=== PATIENT | female | born 1975 | race African-American/Black ===

== ENCOUNTER 2018-11-13 01:21 | Emergency (ER) | payer OTHER ==
[~2018-11-13] VITALS: Ht 167.6 cm; Wt 146.0 kg
[2018-11-13 01:53] VITALS: BP 157/118
[2018-11-13] MEDS ORDERED: MORPHINE SULFATE 4 MG/ML CPJ (NOT FOR IM USE) IV STA (01:53)
[2018-11-13] MEDS ORDERED: ONDANSETRON HCL 4MG/2ML INJ IV STA (01:53)
[2018-11-13] MEDS ORDERED: NITROGLYCERIN OINT 1GM/INCH UDPKT TD ONE (02:00)
[2018-11-13 02:21] LABS: BASOPHILS % 0.9 % (0.0-2.0); HEMOGLOBIN. 10.9 g/dL (12.0-16.0); LYMPHOCYTES % 31.4 % (20.0-50.0); MEAN CORPUSCULAR VOLUME 70.6 fL (81.0-99.0); MEAN PLATELET VOLUME 9.1 fl (7.4-10.4); NEUTROPHILS % 60.7 % (40.0-76.0); PLATELET 318 x1000/uL (130-400); RED BLOOD CELL COUNT 4.95 mill/uL (4.2-5.4)
[2018-11-13 02:25] LABS: CHLORIDE 105 mEq/L (98-107)
[2018-11-13 03:11] LABS: *AMPHETAMINES SCREEN URINE NEGATIVE (NEGATIVE); *BARBITURATES SCREEN URINE NEGATIVE (NEGATIVE); *BENZODIAZEPINES SCREEN URINE NEGATIVE (NEGATIVE); *COCAINE SCREEN URINE NEGATIVE (NEGATIVE); METHADONE URINE SCREEN NEGATIVE (NEGATIVE)
[2018-11-13 03:12] LABS: CANNABINOID URINE SCREEN NEGATIVE (NEGATIVE); OPIATES URINE SCREEN NEGATIVE (NEGATIVE); PHENCYCLIDINE URINE SCREEN NEGATIVE (NEGATIVE)
== END 2018-11-13 03:33 | disposition left against medical advice (07) ==
LOC: ER 01:21 → CANBEDREQ 05:17
DX: R07.89 Other chest pain (principal); E78.00 Pure hypercholesterolemia, unspecified; I10 Essential (primary) hypertension; J45.909 Unspecified asthma, uncomplicated
CPT/HCPCS: 36415; 71045; 80053; 80305; 83690; 83880; 84484; 85025; 85379; 93005; 99284; Z7610

== ENCOUNTER 2021-07-30 00:58 | Emergency (ER) | payer OTHER ==
[~2021-07-30] VITALS: Ht 167.6 cm; Wt 137.0 kg
[2021-07-30 02:14] VITALS: BP 139/80
== END 2021-07-30 02:21 | disposition left against medical advice (07) ==
LOC: ER 00:58
DX: Z53.21 Procedure and treatment not carried out due to patient leaving prior to being seen by health care provider (principal)

== ENCOUNTER 2024-07-27 19:27 | Emergency (ER) | payer MEDICAID ==
[~2024-07-27] VITALS: Ht 167.6 cm; Wt 129.0 kg
[~2024-07-27 19:27] MED LIST: AMLO10TA4 PO; ASPI-1406 MT; ATOR-388 PO; CETI-193 PO; GABA-1180 PO; IBUP-2029 MT; LOSA50TA41 PO; METF-1150 PO; MONT-39 PO
[2024-07-27 20:24] LABS: BASOPHILS % 0.6 % (0.0-2.0); DIFFERENTIAL COMMENT 0; EOSINOPHILS % 3.1 % (0.0-5.0); HEMATOCRIT. 31.6 % (36.0-48.0); HEMOGLOBIN. 9.7 g/dL (12.0-16.0); LYMPHOCYTES % 30.9 % (20.0-50.0); MEAN CORPUSCULAR HEMOGLOBIN 22.5 pg (28.0-32.0); MEAN CORPUSCULAR HGB CONC 30.8 g/dL (31.0-37.0); MEAN CORPUSCULAR VOLUME 73.2 fL (81.0-99.0); MEAN PLATELET VOLUME 8.3 fl (7.4-10.4); MONOCYTES % 4.4 % (2.0-8.0); PLATELET 332 x1000/uL (130-400); RED BLOOD CELL COUNT 4.31 mill/uL (4.2-5.4); RED CELL DISTRIBUTION WIDTH 18.7 % (11.6-14.6); WHITE BLOOD COUNT 11.1 x1000/uL (4.5-11.0)
[2024-07-27 20:31] LABS: CHLORIDE 105 mEq/L (98-107); POTASSIUM 3.9 mEq/L (3.5-5.1); SODIUM 138 mEq/L (136-145)
[2024-07-27 20:32] LABS: CALCIUM 9.1 mg/dL (8.7-10.4); CARBON DIOXIDE 25 mEq/L (21-32)
[2024-07-27 20:37] LABS: CREATININE 0.7 mg/dL (0.6-1.0); GLUCOSE 91 mg/dL (70-105); UREA NITROGEN BLOOD 10 mg/dL (9-23)
[2024-07-27 20:40] LABS: TROPONIN I HIGH SENSITIVITY 6 ng/L (3.0-34)
[2024-07-27] MEDS ORDERED: ALBUTEROL (0.083%) 2.5MG/3ML NEB HHN ONE (20:45)
[2024-07-27] MEDS: IPRATROPIUM/ALBUTEROL 0.5-3(2.5)MG/3ML NEB HHN ONE (20:45)
[2024-07-27] MEDS ORDERED: AZIT250T12 MT (21:17)
[2024-07-27] MEDS ORDERED: PHEN1CAP86 MT (21:17)
[2024-07-27] MEDS ORDERED: GUAI600T26 MT (21:17)
[2024-07-27] MEDS ORDERED: P50 MT (21:17)
[2024-07-27] MEDS ORDERED: BENZ100C86 MT (21:18)
[2024-07-27] MEDS: PREDNISONE 20MG TABLET PO ONE (21:31)
[2024-07-27 22:01] VITALS: PULSE 75; RESP 22; O2SAT 99
[2024-07-27 22:25] VITALS: BP 144/89; PULSE 84; RESP 18; TEMP 36.8; O2SAT 99
== END 2024-07-27 22:26 | disposition home or self-care (01) ==
LOC: ER 19:27
DX: J06.9 Acute upper respiratory infection, unspecified (principal); J44.1 Chronic obstructive pulmonary disease with (acute) exacerbation; E11.9 Type 2 diabetes mellitus without complications; I10 Essential (primary) hypertension; Z79.899 Other long term (current) drug therapy; Z86.73 Personal history of transient ischemic attack (TIA), and cerebral infarction without residual deficits
CPT/HCPCS: 80048; 85025; 84484; 36415; 71045; 94640; 94760; 93005; 99285; J7512; Z7610 ×3

== ENCOUNTER 2024-08-17 16:28 | Emergency (ER) | payer MEDICAID ==
[~2024-08-17] VITALS: Ht 172.7 cm; Wt 124.0 kg
[~2024-08-17 16:28] MED LIST changes: +AMLO-905 PO; -AMLO10TA4 PO; +AZIT250T12 MT; +BENZ100C86 MT; +GUAI600T26 MT; +P50 MT; +PHEN1CAP86 MT
[2024-08-17 16:31] VITALS: RESP 18; TEMP 36.8; O2SAT 98
[2024-08-17] MEDS: SODIUM CHLORIDE 0.9% 1,000 ML IV ONE (16:59)
[2024-08-17 17:12] LABS: BASOPHILS % 0.5 % (0.0-2.0); DIFFERENTIAL COMMENT 0; HEMATOCRIT. 34.9 % (36.0-48.0); HEMOGLOBIN. 10.7 g/dL (12.0-16.0); LYMPHOCYTES % 27.5 % (20.0-50.0); MEAN CORPUSCULAR HGB CONC 30.6 g/dL (31.0-37.0); MEAN PLATELET VOLUME 8.1 fl (7.4-10.4); MONOCYTES % 3.8 % (2.0-8.0); NEUTROPHILS % 66.2 % (40.0-76.0); PLATELET 346 x1000/uL (130-400); RED BLOOD CELL COUNT 4.85 mill/uL (4.2-5.4); WHITE BLOOD COUNT 12.4 x1000/uL (4.5-11.0)
[2024-08-17 17:22] LABS: CHLORIDE 105 mEq/L (98-107); POTASSIUM 3.9 mEq/L (3.5-5.1); PROTHROMBIN TIME 10.3 sec (9.6-11.0); SODIUM 138 mEq/L (136-145)
[2024-08-17 17:23] LABS: CALCIUM 10.1 mg/dL (8.7-10.4); CARBON DIOXIDE 24 mEq/L (21-32)
[2024-08-17 17:28] LABS: CREATININE 0.7 mg/dL (0.6-1.0); ETHANOL BLOOD < 10 mg/dL (<10); GLUCOSE 103 mg/dL (70-105); UREA NITROGEN BLOOD 13 mg/dL (9-23)
[2024-08-17 17:29] LABS: TROPONIN I HIGH SENSITIVITY 5 ng/L (3.0-34)
[2024-08-17 17:59] LABS: HCG SCREEN NEGATIVE
[2024-08-17 20:53] LABS: TROPONIN I HIGH SENSITIVITY 5 ng/L (3.0-34)
[2024-08-17 21:29] VITALS: BP 140/87; PULSE 73; O2SAT 99
[2024-08-17] MEDS ORDERED: IOHEXOL-350 100 ML BOTTLE ONE (22:36)
== END 2024-08-17 21:47 | disposition home or self-care (01) ==
LOC: ER 16:28
DX: R07.89 Other chest pain (principal); E11.9 Type 2 diabetes mellitus without complications; I10 Essential (primary) hypertension; J44.89 Other specified chronic obstructive pulmonary disease; Z79.82 Long term (current) use of aspirin; Z79.84 Long term (current) use of oral hypoglycemic drugs; Z79.899 Other long term (current) drug therapy; Z86.73 Personal history of transient ischemic attack (TIA), and cerebral infarction without residual deficits
CPT/HCPCS: 80048; 80320; 84703; 83880; 83690; 85025; 85610; 84484; 36415; 71045; 71275; 93005; 96360; 99285; Q9967; J7030; G0480

== ENCOUNTER 2024-09-05 20:40 | Emergency (ER) | payer MEDICAID ==
[~2024-09-05] VITALS: Ht 167.6 cm; Wt 126.6 kg
[2024-09-05 20:46] VITALS: O2SAT 99
[2024-09-05 20:52] VITALS: TEMP 37.1; O2SAT 100
[2024-09-06] MEDS: IBUPROFEN 600MG TABLET PO STA (00:30)
[2024-09-06 00:57] LABS: MEAN CORPUSCULAR HEMOGLOBIN 22.7 pg (28.0-32.0)
[2024-09-06 01:01] LABS: BASOPHILS % 0.5 % (0.0-2.0); DIFFERENTIAL COMMENT 0; EOSINOPHILS % 1.8 % (0.0-5.0); HEMATOCRIT. 31.7 % (36.0-48.0); LYMPHOCYTES % 25.5 % (20.0-50.0); MEAN CORPUSCULAR HGB CONC 31.5 g/dL (31.0-37.0); MEAN CORPUSCULAR VOLUME 71.9 fL (81.0-99.0); MEAN PLATELET VOLUME 7.7 fl (7.4-10.4); MONOCYTES % 4.7 % (2.0-8.0); NEUTROPHILS % 67.5 % (40.0-76.0); PLATELET 381 x1000/uL (130-400); RED BLOOD CELL COUNT 4.41 mill/uL (4.2-5.4); RED CELL DISTRIBUTION WIDTH 18.3 % (11.6-14.6); WHITE BLOOD COUNT 13.1 x1000/uL (4.5-11.0)
[2024-09-06 01:03] LABS: CARBON DIOXIDE 26 mEq/L (21-32); CHLORIDE 104 mEq/L (98-107); POTASSIUM 3.6 mEq/L (3.5-5.1); SODIUM 138 mEq/L (136-145)
[2024-09-06 01:04] LABS: CALCIUM 9.1 mg/dL (8.7-10.4)
[2024-09-06 01:08] LABS: CREATININE 0.8 mg/dL (0.6-1.0); GLUCOSE 99 mg/dL (70-105)
[2024-09-06 01:09] LABS: PROTHROMBIN TIME 10.8 sec (9.6-11.0); UREA NITROGEN BLOOD 11 mg/dL (9-23)
[2024-09-06 01:10] LABS: ALANINE AMINOTRANSFERASE 16 IU/L (10-49); ALBUMIN 4.3 g/dL (3.2-4.8); ASPARTATE AMINOTRANSFERASE 9 IU/L (<34)
[2024-09-06 01:11] LABS: BILIRUBIN DIRECT 0.1 mg/dL (<=3.0); BILIRUBIN TOTAL 0.5 mg/dL (0.1-1.0); PROTEIN TOTAL 7.5 g/dL (6.0-8.3)
[2024-09-06 01:29] LABS: CLARITY URINE CLOUDY (CLEAR); COLOR URINE DARK YELLOW (YELLOW); GLUCOSE URINE NEGATIVE (NEGATIVE); KETONES URINE 1+ (NEGATIVE); LEUKOCYTE ESTERASE URINE NEGATIVE (NEGATIVE); NITRITE URINE NEGATIVE (NEGATIVE); OCCULT BLOOD URINE NEGATIVE (NEGATIVE); PH URINE 5.5 (4.5-8.0); PROTEIN URINE 1+ (NEGATIVE); SPECIFIC GRAVITY URINE 1.042 (1.005-1.030)
[2024-09-06 02:39] LABS: RBC URINE 0-2 /hpf (0-2); SQUAMOUS EPITHELIAL CELL URINE 1+ /lpf (RARE/1+); WBC URINE 0-2 /hpf (0-2)
[2024-09-06 02:40] LABS: BACTERIA URINE NONE SEEN
[2024-09-06 02:41] LABS: MUCUS URINE 1+ /lpf (< = 2+)
[2024-09-06] MEDS ORDERED: CLIN-194 MT (03:13)
[2024-09-06] MEDS ORDERED: IBUP-2030 MT (03:14)
[2024-09-06] MEDS ORDERED: MECL-299 MT (03:23)
[2024-09-06] MEDS ORDERED: DIPH50CA41 MT (03:23)
[2024-09-06] MEDS ORDERED: KETO10TA2 MT (03:38)
[2024-09-06 04:06] VITALS: BP 142/88; PULSE 112; RESP 18
[2024-09-06] MEDS: MECLIZINE 25MG TABLET PO ONE (04:06)
[2024-09-06] MEDS: KETOROLAC 30MG/ML VIAL IM ONE (04:06)
== END 2024-09-06 04:15 | disposition home or self-care (01) ==
LOC: ER 20:40
DX: L02.413 Cutaneous abscess of right upper limb (principal); L02.01 Cutaneous abscess of face; R42 Dizziness and giddiness; J44.89 Other specified chronic obstructive pulmonary disease; I10 Essential (primary) hypertension; E11.9 Type 2 diabetes mellitus without complications; Z86.73 Personal history of transient ischemic attack (TIA), and cerebral infarction without residual deficits; Z79.899 Other long term (current) drug therapy; Z79.84 Long term (current) use of oral hypoglycemic drugs; Z98.890 Other specified postprocedural states; Z79.82 Long term (current) use of aspirin
CPT/HCPCS: 99283; 80076; 80048; 81003; 83690; 85025; 85610; 36415; 96372; J1885; J8597

== ENCOUNTER 2024-10-27 16:02 | Emergency (ER) | payer MEDICAID ==
[~2024-10-27] VITALS: Ht 177.8 cm; Wt 122.0 kg
[~2024-10-27 16:02] MED LIST changes: +CLIN-194 MT; +DIPH50CA41 MT; +KETO10TA2 MT; +MECL-299 MT
[2024-10-27 16:04] VITALS: BP 114/78; PULSE 109; RESP 19; TEMP 36.8; O2SAT 100
[2024-10-27 17:02] LABS: BASOPHILS % 0.7 % (0.0-2.0); DIFFERENTIAL COMMENT 0; EOSINOPHILS % 1.4 % (0.0-5.0); HEMATOCRIT. 32.6 % (36.0-48.0); HEMOGLOBIN. 10.4 g/dL (12.0-16.0); LYMPHOCYTES % 24.3 % (20.0-50.0); MEAN CORPUSCULAR HEMOGLOBIN 22.6 pg (28.0-32.0); MEAN CORPUSCULAR HGB CONC 31.9 g/dL (31.0-37.0); MEAN CORPUSCULAR VOLUME 70.9 fL (81.0-99.0); MONOCYTES % 4.7 % (2.0-8.0); NEUTROPHILS % 68.9 % (40.0-76.0); PLATELET 420 x1000/uL (130-400); RED BLOOD CELL COUNT 4.59 mill/uL (4.2-5.4); WHITE BLOOD COUNT 9.6 x1000/uL (4.5-11.0)
[2024-10-27 17:10] LABS: CARBON DIOXIDE 22 mEq/L (21-32); CHLORIDE 106 mEq/L (98-107); POTASSIUM 4.3 mEq/L (3.5-5.1); SODIUM 138 mEq/L (136-145)
[2024-10-27 17:11] LABS: CALCIUM 9.9 mg/dL (8.7-10.4)
[2024-10-27 17:15] LABS: CREATININE 0.8 mg/dL (0.6-1.0)
[2024-10-27 17:16] LABS: GLUCOSE 101 mg/dL (70-105); UREA NITROGEN BLOOD 11 mg/dL (9-23)
[2024-10-27 17:17] LABS: ALANINE AMINOTRANSFERASE 10 IU/L (10-49)
[2024-10-27 17:18] LABS: ALBUMIN 4.7 g/dL (3.2-4.8); ASPARTATE AMINOTRANSFERASE 10 IU/L (<34); BILIRUBIN DIRECT 0.2 mg/dL (<=3.0); BILIRUBIN TOTAL 0.5 mg/dL (0.1-1.0); PROTEIN TOTAL 7.5 g/dL (6.0-8.3); TROPONIN I HIGH SENSITIVITY 5 ng/L (3.0-34)
[2024-10-27 19:11] LABS: TROPONIN I HIGH SENSITIVITY 5 ng/L (3.0-34)
== END 2024-10-27 19:21 | disposition left against medical advice (07) ==
LOC: ER 16:02
DX: R07.89 Other chest pain (principal); E11.9 Type 2 diabetes mellitus without complications; I10 Essential (primary) hypertension; J44.89 Other specified chronic obstructive pulmonary disease; Z79.82 Long term (current) use of aspirin; Z79.84 Long term (current) use of oral hypoglycemic drugs; Z79.899 Other long term (current) drug therapy; Z86.73 Personal history of transient ischemic attack (TIA), and cerebral infarction without residual deficits
CPT/HCPCS: 36415; 71045; 80048; 80076; 83880; 84484; 85025; 93005; 99285